=== PATIENT | female | born 1970 | race Caucasian/White ===

== ENCOUNTER 2019-11-15 12:33 | Emergency (ER) | payer OTHER ==
[~2019-11-15] VITALS: Ht 162.6 cm; Wt 122.9 kg
[2019-11-15 12:38] VITALS: BP 157/62
[2019-11-15] MEDS ORDERED: LIDOCAINE MPF 1% 10 MG/ML VIAL INJ ONE (13:50)
[2019-11-15] MEDS ORDERED: TRIAMCINOLONE 40 MG/ML 5ML VIAL IA ONE (13:50)
[2019-11-15] MEDS ORDERED: KETOROLAC 60 MG/2 ML VIAL IM ONE (14:50)
[2019-11-15 15:02] VITALS: BP 157/62
== END 2019-11-15 15:00 | disposition home or self-care (01) ==
LOC: MED 12:33
DX: M75.32 Calcific tendinitis of left shoulder (principal); J44.9 Chronic obstructive pulmonary disease, unspecified; E11.9 Type 2 diabetes mellitus without complications; F17.210 Nicotine dependence, cigarettes, uncomplicated; Z71.6 Tobacco abuse counseling
CPT/HCPCS: 20610; 73030; 96372; 99283; J1885; J2001; J3301; Q0092; 99284

== ENCOUNTER 2020-05-26 00:40 | Emergency (ER) | payer OTHER ==
[~2020-05-26] VITALS: Ht 162.6 cm; Wt 114.8 kg
[2020-05-26 00:47] VITALS: BP 140/79
--- NOTE | 2020-05-26 00:55 | NUR ---
PATIENT AMBULATED TO BED 2 WITH STEADY GAIT.
--- NOTE | 2020-05-26 00:58 | NUR ---
PATIENT 50 Y.O. BIB SELF FOR C/O 11/19 RIGHT SHOULDER PAIN AFTER SLEEPING. PATIENT DENIES THAT THE PAIN RADIATES. A & O X4. PATIENT STATES "THIS HAPPENED ABOUT 4 MONTHS AGO AND THE DOCTOR TOLD ME MY SHOULDER IS BONE ON BONE AND THEN GAVE ME A CORTIZONE SHOT THAT REALLY HELPED." CMS INTACT. CAP REFILL < 3 SECONDS. PATIENT ABLE TO STRAIGHTEN RIGHT ARM WITH ASSIST FROM HER LEFT HAND. SKIN IS WARM, DRY AND INTACT. PATIENT DENIES NUMBNESS OR TINGLING. PATIENT DENIES INJURY TO RIGHT ARM. PATIENT DENIES CP, SOB, FEVER, CHILLS. SEE COMPLETE ASSESSMENT FOR FURTHER DETAILS. MED HX: DM ALLERGIES: NKA
--- NOTE | 2020-05-26 01:16 | NUR ---
ERMD AT BEDSIDE.
[2020-05-26] MEDS ORDERED: KETOROLAC 30 MG/ML VIAL IM ONE (01:25)
[2020-05-26] MEDS ORDERED: CYCL1POW PO (03:29)
[2020-05-26] MEDS ORDERED: NAPR-54 PO (03:29)
--- NOTE | 2020-05-26 04:03 | NUR ---
PTS RIGHT ARM WAS PLACED IN A SHOULDER SLING. PTS [facility] [place] WNL.
[2020-05-26] MEDS ORDERED: ACET-8386 PO (04:04)
[2020-05-26 04:06] VITALS: BP 143/89
--- NOTE | 2020-05-26 04:06 | NUR ---
Patient discharged with v/s stable. Written and verbal after care instructions given and explained. Patient alert, oriented and verbalized understanding of instructions. Ambulatory with steady gait. All questions addressed prior to discharge. ID band removed. Patient advised to follow up with PMD. Rx of NORCO, CYCLOBENZAPRINE, NAPROXEN given. Patient educated on indication of medication including possible reaction and side effects. Opportunity to ask questions provided and answered.
== END 2020-05-26 04:06 | disposition home or self-care (01) ==
LOC: MED 00:40
DX: S46.911A Strain of unspecified muscle, fascia and tendon at shoulder and upper arm level, right arm, initial encounter (principal); J43.9 Emphysema, unspecified; E11.9 Type 2 diabetes mellitus without complications; Z90.49 Acquired absence of other specified parts of digestive tract; Z79.899 Other long term (current) drug therapy; X50.0XXA Overexertion from strenuous movement or load, initial encounter; Y93.89 Activity, other specified; Y92.89 Other specified places as the place of occurrence of the external cause; Y99.8 Other external cause status
CPT/HCPCS: 73030; 96372; 99283; J1885

== ENCOUNTER 2021-10-24 19:00 | Emergency (ER) | payer MEDICAID, OTHER ==
[~2021-10-24] VITALS: Ht 160 cm; Wt 119.7 kg
[~2021-10-24 19:00] MED LIST: ACET-8386 PO; CYCL1POW PO; NAPR-54 PO
[2021-10-24 19:32] VITALS: BP 125/92
--- NOTE | 2021-10-24 19:50 | NUR ---
OSCAR AMBULATED TO BED 7
--- NOTE | 2021-10-24 19:52 | NUR ---
PATIENT AMBULATED TO RR
--- NOTE | 2021-10-24 20:03 | NUR ---
51YR OLD FEMALE BIB SELF C/O MED REFILL FOR INSULIN/ LOWER LEG PAIN AND ABD PAIN. PT STATES NOT HAVING HER RX FOR INSULIN [id number]. GLUC IN TRAIGE 146. PT IS A&OX4. SKIN WARM DRY AND INTACT. STATES LOWER LEG PAIN WAS TREATED FOR "CELLULITITS" RECENTILY. LOWER EXT SWOLLEN NON PITTING NON EDEMA SWELLING. PAIN LEVEL 8/10. LOWER ABD PAIN XTODAY. DENIES FEVER V/D. HOB ELEVATED BED AT LOWEST POSITION. NKDA NEUROPATHY DM
[2021-10-24] MEDS ORDERED: FURO-572 PO (20:19)
[2021-10-24] MEDS ORDERED: SEMA0.25 SQ ×2 (20:19→20:21)
[2021-10-24 20:47] VITALS: BP 125/92
--- NOTE | 2021-10-24 20:47 | NUR ---
Patient discharged with v/s stable. Written and verbal after care instructions given and explained. Patient alert, oriented and verbalized understanding of instructions. Ambulatory with steady gait. All questions addressed prior to discharge. ID band removed. Patient advised to follow up with PMD. Rx of LASIX OZEMPIC given.
--- NOTE | 2021-10-24 21:05 | NUR ---
The patient's care was reviewed and supervised by Guadalupe Avalos RN, RN.
== END 2021-10-24 20:47 | disposition home or self-care (01) ==
LOC: MED 19:00
DX: E11.9 Type 2 diabetes mellitus without complications (principal); R60.0 Localized edema; Z76.0 Encounter for issue of repeat prescription; J44.9 Chronic obstructive pulmonary disease, unspecified; F17.210 Nicotine dependence, cigarettes, uncomplicated; Z90.49 Acquired absence of other specified parts of digestive tract; Z90.710 Acquired absence of both cervix and uterus; Z98.890 Other specified postprocedural states; Z79.899 Other long term (current) drug therapy; Z79.1 Long term (current) use of non-steroidal anti-inflammatories (NSAID); Z79.891 Long term (current) use of opiate analgesic
CPT/HCPCS: 82948; 99282

== ENCOUNTER 2022-01-02 19:54 | Emergency (ER) | payer MEDICAID ==
[~2022-01-02] VITALS: Ht 162.6 cm; Wt 113.4 kg
[~2022-01-02 19:54] MED LIST changes: +FURO-572 PO; +SEMA0.25 SQ
[2022-01-02 20:14] VITALS: BP 135/91
--- NOTE | 2022-01-02 20:24 | NUR ---
TO BED 10 FOLLOWING TRIAGE, UA OBTAINED
--- NOTE | 2022-01-02 20:28 | NUR ---
PT TO BED 08.
--- NOTE | 2022-01-02 20:35 | NUR ---
Dr. Moody at bedside examining pt.
--- NOTE | 2022-01-02 20:36 | NUR ---
Pt coming from home ambulatory with unsteady gait due to abdominal pain 11/19. Pt started to have abdominal pain x3 days ago. Also c/o diarrhea and nausea. A&Ox4. Skin intact. NKA. Has hx of DM and cataracts. Bed in lowest position. No chest pain and no sob. VSS.
[2022-01-02] MEDS ORDERED: MORPHINE SULFATE 4 MG/ML SYR IVP ONE (20:40)
[2022-01-02] MEDS ORDERED: NACL 0.9% 1,000 ML IV ONE (20:40)
--- NOTE | 2022-01-02 20:57 | NUR ---
#20g IV placed on left AC using aseptic technique. No infiltration noted. Blood drawn and sent to lab. 10cc NS flushed. Saline lock.
[2022-01-02 21:05] LABS: APPEARANCE,URINE SL CLOUDY (CLEAR); BILIRUBIN,URINE NEGATIVE (NEGATIVE); BLOOD, URINE TRACE-I (NEGATIVE); COLOR,URINE YELLOW (YELLOW); LEUKOCYTE ESTERASE ,URINE NEGATIVE (NEGATIVE); NITRITE, URINE NEGATIVE (NEGATIVE); UGLUCOSE NEGATIVE (NEGATIVE)
[2022-01-02 21:06] LABS: BASOPHILS % (AUTO) 0.3 % (0.0-2.0); EOSINOPHILS % (AUTO) 0.3 % (0.0-4.0); HEMATOCRIT 48.6 % (36-48); HEMOGLOBIN 16.1 g/dL (12.0-16.0); LYMPHOCYTES # (AUTO) 2.8 K/uL (2.5-16.5); LYMPHOCYTES % (AUTO) 28.5 % (20.5-51.1); MEAN CORPUSCULAR HEMOGLOBIN 28 pg (27-31); MEAN CORPUSCULAR HGB CONC 33 g/dL (33-37); MEAN CORPUSCULAR VOLUME 84.7 fL (80-94); MONOCYTES # (AUTO) 0.8 K/uL (0.8-1.0); MONOCYTES % (AUTO) 7.6 % (1.7-9.3); NEUTROPHILS # (AUTO) 6.3 K/uL (1.8-7.7); NEUTROPHILS % (AUTO) 63.3 % (42.2-75.2); PLATELET COUNT (AUTO) 237 K/uL (140-450); RED BLOOD CELL COUNT(AUTO) 5.73 MIL/uL (4.20-5.40); RED CELL DISTRIBUTION WIDTH 15.4 % (11.6-13.7); WHITE BLOOD COUNT (AUTO) 9.9 K/uL (4.8-10.8)
[2022-01-02] MEDS ORDERED: ONDANSETRON 4 MG/2 ML VIAL IVP ONE (21:10)
[2022-01-02 21:17] LABS: RBC,URINE 0-5 /HPF (0-5); WBC,URINE 0-5 /HPF (0-5)
[2022-01-02 21:18] LABS: OTHER CASTS, URINE None Seen /LPF (None Seen)
[2022-01-02 21:22] LABS: ALBUMIN 3.2 g/dL (3.4-5.0); ANION GAP 8.8 (8-16); CARBON DIOXIDE 28.7 mmol/L (21-32); CREATININE 0.9 mg/dL (0.6-1.3); POTASSIUM 3.5 mmol/L (3.5-5.1); TOTAL BILIRUBIN 0.5 mg/dL (0.0-1.0)
--- NOTE | 2022-01-02 21:29 | NUR ---
Covid and flu swab done and sent to lab.
[2022-01-02] MEDS ORDERED: BISM262C53 PO (23:19)
[2022-01-02] MEDS ORDERED: LOPE1TAB14 PO (23:19)
[2022-01-02] MEDS ORDERED: BEN10 PO (23:19)
--- NOTE | 2022-01-02 23:42 | NUR ---
Patient discharged with v/s stable. Written and verbal after care instructions given and explained. Patient verbalized understanding. Ambulatory with steady gait. All questions addressed prior to discharge. Advised to follow up with PMD.
[2022-01-02 23:43] VITALS: BP 128/79
== END 2022-01-02 23:42 | disposition home or self-care (01) ==
LOC: MED 19:54
DX: A08.4 Viral intestinal infection, unspecified (principal); R16.0 Hepatomegaly, not elsewhere classified; Z20.822 Contact with and (suspected) exposure to COVID-19; J44.9 Chronic obstructive pulmonary disease, unspecified; E11.9 Type 2 diabetes mellitus without complications; Z98.890 Other specified postprocedural states; Z90.710 Acquired absence of both cervix and uterus; Z79.899 Other long term (current) drug therapy; Z79.891 Long term (current) use of opiate analgesic; Z79.1 Long term (current) use of non-steroidal anti-inflammatories (NSAID)
CPT/HCPCS: 36415; 74176; 80053; 81001; 83605; 83690; 85025; 87040; 87426; 87804; 96361; 96374; 96375; 99284; J2270; J2405; J7030